=== PATIENT | male | born 1955 | race Hispanic/Latino ===

== ENCOUNTER 2017-11-15 04:38 | Inpatient (IN) | payer OTHER ==
[2017-11-15 05:06] LABS: Basophils % (Auto) 0.6 % (0.0-1.8); Eosinophils # (Auto) 0.1 K/mm3 (0.0-0.4); Eosinophils % (Auto) 0.8 % (0.0-4.3); Hematocrit 43.8 % (35.5-45.6); Hemoglobin 14.7 gm/dl (11.8-15.2); Lymphocytes # (Auto) 1.1 K/mm3 (1.2-5.4); Lymphocytes % (Auto) 17.6 % (13.4-35.0); Mean Corpuscular HGB Conc 34 % (32-34); Mean Corpuscular Hemoglobin 33 pg (28-32); Mean Corpuscular Volume 97 fl (84-94); Monocytes # (Auto) 0.7 K/mm3 (0.0-0.8); Platelet Count 181 K/mm3 (140-440); Red Blood Count 4.53 M/mm3 (3.65-5.03); Red Cell Distribution Width 13.6 % (13.2-15.2)
[2017-11-15 05:15] LABS: BUN/Creatinine Ratio 10; Blood Urea Nitrogen 7 mg/dL (9-20); Calcium 9.3 mg/dL (8.4-10.2); Hemolysis Index 6
[2017-11-15] MEDS ORDERED: NACL 0.9% 1000 ML 1,000 ML IV ONE (07:00)
[2017-11-15] MEDS ORDERED: ZOFRAN IV ONE (07:08)
--- NOTE | 2017-11-15 07:08 | Emergency Department Report ---
HPI - General Chief Complaint: Nausea/Vomiting/Diarrhea Time Seen by Provider: 11/15/17 06:40 - HPI HPI: 62-year-old male presents to the emergency department with a one-day history of dizziness, nausea and vomiting and tremors/shakes. The patient says he feels dehydrated. He says that he spent , drinking heavily and did not eat much food. Patient also says that he feels slightly off balance. He denies any history of alcoholism and is not a daily drinker. He denies any illicit drug use. He has a past medical history of gout, hypertension and questionable thyroid disease. His primary care physician is a Dr. Melgar. No recent travel or sick contacts at home. He denies any vision change, chest pain, fever, slurred speech. ED Past Medical Hx - Past Medical History Hx Hypertension: Yes Hx Congestive Heart Failure: No Hx Diabetes: No Hx Asthma: No Hx COPD: No Hx HIV: No Additional medical history: GOUT, Thyroid Disease. - Surgical History Additional Surgical History: Multiple Surgeries on hands - Social History Smoking Status: Never Smoker Substance Use Type: Alcohol - Medications Home Medications: Home Medications Medication Instructions Recorded Confirmed Last Taken Type Folic Acid 1 tab PO QDAY #30 tab 05/05/15 11/15/17 Unknown Rx Multivitamin Tab [Multiple Vitamin 1 each PO QDAY #30 tablet 05/05/15 11/15/17 Unknown Rx TAB (Theragran)] Thiamine [Vitamin B-1] 100 mg PO QDAY #30 tablet 05/05/15 11/15/17 Unknown Rx Allopurinol 300 mg PO QDAY 11/15/17 11/15/17 Unknown History Levothyroxine [Synthroid] 50 mcg PO QAM 11/15/17 11/15/17 Unknown History Lisinopril 20 mg PO QDAY 11/15/17 11/15/17 Unknown History ED Review of Systems ROS: Stated complaint: SHAKES,DEHYDRATION Other details as noted in HPI Comment: All other systems reviewed and negative Constitutional: denies: chills, fever Eyes: denies: eye pain, eye discharge, vision change ENT: denies: ear pain, throat pain Respiratory: denies: cough, shortness of breath, wheezing Cardiovascular: denies: chest pain, palpitations Gastrointestinal: nausea, vomiting Genitourinary: denies: urgency, dysuria Musculoskeletal: denies: back pain, joint swelling, arthralgia Skin: denies: rash, lesions Neurological: other (dizziness). denies: headache Physical Exam - Physical Exam Vital Signs: Vital Signs 11/15/17 11/15/17 11/15/17 04:44 05:07 05:16 Temperature 97.7 F Pulse Rate 78 Respiratory 18 Rate Blood Pressure 177/94 174/90 Blood Pressure [Left] O2 Sat by Pulse 100 96 98 Oximetry 11/15/17 11/15/17 11/15/17 05:20 05:22 05:30 Temperature 97.7 F Pulse Rate 70 Respiratory 16 16 Rate Blood Pressure 156/79 Blood Pressure 174/90 [Left] O2 Sat by Pulse 96 96 97 Oximetry 11/15/17 11/15/17 11/15/17 05:46 06:00 06:16 Temperature Pulse Rate Respiratory Rate Blood Pressure 156/79 165/82 165/82 Blood Pressure [Left] O2 Sat by Pulse 97 97 97 Oximetry 11/15/17 11/15/17 06:30 06:46 Temperature Pulse Rate Respiratory Rate Blood Pressure 155/82 155/82 Blood Pressure [Left] O2 Sat by Pulse 99 98 Oximetry Physical Exam: GENERAL: The patient is well-developed well-nourished. HENT: Normocephalic. Atraumatic. Patient has moist mucous membranes. EYES: Extraocular motions are intact. Pupils equal reactive to light bilaterally. No nystagmus. NECK: Supple. Trachea is midline. CHEST/LUNGS: Clear to auscultation. There is no respiratory distress noted. HEART/CARDIOVASCULAR: Regular. There is no tachycardia. There is no murmur. ABDOMEN: Abdomen is soft, nontender. Patient has normal bowel sounds. There is no abdominal distention. SKIN: Skin is warm and dry. NEURO: The patient is awake, alert, and oriented. The patient is cooperative. The patient has no focal neurologic deficits. The patient has normal speech. Cranial nerves II through XII grossly intact. No pronator drift. No dysmetria. Patient does have bilateral upper extremity tremors worse in the distal portions. MUSCULOSKELETAL: There is no tenderness or deformity. There is no evidence of acute injury. ED Course Vital Signs 11/15/17 11/15/17 11/15/17 04:44 05:07 05:16 Temperature 97.7 F Pulse Rate 78 Respiratory 18 Rate Blood Pressure 177/94 174/90 Blood Pressure [Left] O2 Sat by Pulse 100 96 98 Oximetry 11/15/17 11/15/17 11/15/17 05:20 05:22 05:30 Temperature 97.7 F Pulse Rate 70 Respiratory 16 16 Rate Blood Pressure 156/79 Blood Pressure 174/90 [Left] O2 Sat by Pulse 96 96 97 Oximetry 11/15/17 11/15/17 11/15/17 05:46 06:00 06:16 Temperature Pulse Rate Respiratory Rate Blood Pressure 156/79 165/82 165/82 Blood Pressure [Left] O2 Sat by Pulse 97 97 97 Oximetry 11/15/17 11/15/17 06:30 06:46 Temperature Pulse Rate Respiratory Rate Blood Pressure 155/82 155/82 Blood Pressure [Left] O2 Sat by Pulse 99 98 Oximetry ED Medical Decision Making - Lab Data Result diagrams: 11/15/17 04:55 11/15/17 04:55 - EKG Data -: EKG Interpreted by Oh EKG shows normal: sinus rhythm, axis (left axis deviation), intervals, QRS complexes (LAFB), ST-T waves Rate: normal - EKG Data When compared to previous EKG there are: previous EKG unavailable Interpretation: other (sinus, left axis deviation, LAFB) - Radiology Data Radiology results: report reviewed CT of the head does not show any acute intracranial process including no ischemia, shift, mass, bleeding or skull fracture. - Medical Decision Making Patient presents with some generalized weakness and dizziness, nausea and vomiting and no onset tremors. The patient denies a history of alcoholism but does admit to recent alcohol abuse. He also says that he has not eaten much since having the drinking session 2 days ago. Found to have hyponatremia with a blood sugar of 125 as well as some slightly low magnesium. His symptoms could be related to electrolyte abnormalities but also could be some type of an alcohol withdrawal syndrome. CT head does not show any bleed, shift, mass or any acute process. EKG does not show any ST elevation SD or significant dysrhythmia. Vital signs stable throughout his course. The patient be admitted to the hospital for further evaluation and treatment and was accepted for admission by the hospitalist service. - Differential Diagnosis alcohol withdrawal, CVA, MS, electrolyte abnormalities Critical Care Time: No Critical care attestation.: If time is entered above; I have spent that time in minutes in the direct care of this critically ill patient, excluding procedure time. ED Disposition Clinical Impression: Hyponatremia, Hypomagnesemia, Dizziness Disposition: OP ADMIT IP TO THIS HOSP Is pt being admited?: Yes Condition: Stable Time of Disposition: 11:37
--- NOTE | 2017-11-15 07:26 | Cat Scan Report ---
FINAL REPORT EXAM: CT HEAD/BRAIN WO CON HISTORY: Dizziness TECHNIQUE: Routine axial imaging was obtained of the brain without IV contrast. FINDINGS: There is mild generalized atrophy. There is no evidence of acute stroke or hemorrhage. The ventricular system is appropriate in size and is symmetric. The basal cisterns appear normal. The visualized sinuses are clear. The mastoid air cells are well pneumatized IMPRESSION: Mild generalized atrophy. No evidence of acute stroke or hemorrhage.
[2017-11-15] MEDS ORDERED: MAGNESIUM SULFATE 1 GM in NACL 0.9% 50 ML IV ONE (08:00)
[2017-11-15] MEDS ORDERED: ATIVAN IV PRN (10:22)
[2017-11-15] MEDS ORDERED: HALDOL IV PRN (10:22)
[2017-11-15] MEDS ORDERED: APRESOLINE IV PRN (10:25)
[2017-11-15] MEDS ORDERED: ZOFRAN IV PRN (10:25)
[2017-11-15] MEDS ORDERED: TYLENOL PO PRN (10:25)
--- NOTE | 2017-11-15 10:29 | History and Physical Report ---
History of Present Illness Date of admission: 11/15/17 08:21 Chief complaint: N/V/D with tremors History of present illness: Patient is a 62-year-old man with a history of hypertension, gout, hypothyroidism and alcohol abuse who presents to [facility] ED via private vehicle ( drove him yesterday) with intractable severe constant nausea vomiting and small amount of diarrhea which is resolved. He had dry heaves and murmurs reported today. He is thirsty and dehydrated. Patient consumed copious amounts of alcohol on day, Wednesday, November 13. His last alcoholic drink was around 7 PM on Wednesday evening. Then he developed intractable nausea and vomiting. He denies any abdominal pain currently or diarrhea. He denies any fever or chills or cough. There is no aggravating or relieving factors to nausea/vomiting. Patient is being admitted to the hospital for alcohol withdrawal symptoms, severely low sodium level 125 with dehydration. Past medical history: As HPI, also GERD, patient states he is compliant with his thyroid medication although TSH is 8.920 Past surgical history: Left ear surgery as a child, bilateral hand surgery, Rupesh angina surgery Social history: He denies ever smoking, he has all abuse he denies any liver drugs he's at bedside, full Code Family history: Denies hypertension, mother of bone cancer (possibly was mets), father of prostate cancer, maternal uncle Emiliano has diabetes mellitus ROS: Constitutional: denies: fever ENT: denies: throat or neck pain Respiratory: denies: cough, shortness of breath Cardiovascular: denies: chest pain Endocrine: denies unexplained weight loss or gain Gastrointestinal: denies: abdominal pain, +nausea Genitourinary: denies: dysuria Rectal: denies no incontinence, no bleeding, no itching, no discharge Musculoskeletal: denies swelling, myaglia, +muscle weakness Skin: denies: rash Neurological: +frontal mild headache Hematological/Lymphatic: denies: easy bleeding or easy bruising Allergic/Immunologic: no urticaria, no allergic rhinitis, no anaphylaxis Psych: denies sadness or hopelessness, SI/HI Medications and Allergies Allergies Allergy/AdvReac Type Severity Reaction Status Date / Time penicillin Allergy Swelling Verified 05/04/15 12:33 Home Medications Medication Instructions Recorded Confirmed Last Taken Type Folic Acid 1 tab PO QDAY #30 tab 05/05/15 11/15/17 Unknown Rx Multivitamin Tab [Multiple Vitamin 1 each PO QDAY #30 tablet 05/05/15 11/15/17 Unknown Rx TAB (Theragran)] Thiamine [Vitamin B-1] 100 mg PO QDAY #30 tablet 05/05/15 11/15/17 Unknown Rx Allopurinol 300 mg PO QDAY 11/15/17 11/15/17 Unknown History Levothyroxine [Synthroid] 50 mcg PO QAM 11/15/17 11/15/17 Unknown History Lisinopril 20 mg PO QDAY 11/15/17 11/15/17 Unknown History Active Meds: Active Medications Acetaminophen (Tylenol) 325 mg PO Q6H PRN PRN Reason: Pain, Mild (1-3) Allopurinol (Zyloprim) 300 mg PO QDAY [facility] Chlordiazepoxide HCl (Librium) 50 mg PO Q1H PRN PRN Reason: CIWA-Ar 8-15 Enoxaparin Sodium (Lovenox) 40 mg SUB-Q QDAY [facility] Haloperidol Lactate (Haldol) 5 mg IV Q1H PRN PRN Reason: Unrespon. to mult. doses BZD's Hydralazine HCl (Apresoline) 10 mg IV Q4HR PRN PRN Reason: Blood Pressure Sodium Chloride (Nacl 0.9% 1000 Ml) 1,000 mls @ 100 mls/hr IV DIRECT [facility] Levothyroxine Sodium (Synthroid) 100 mcg PO DAILY@0600 [facility] Lisinopril (Zestril) 20 mg PO QDAY [facility] Lorazepam (Ativan) 2 mg IV Q1H PRN PRN Reason: CIWA-Ar 16-25 Miscellaneous Medication (Folic Acid [Folic Acid]) 1 tab PO QDAY [facility] Multivitamins (Theragran Tab) 1 each PO QDAY [facility] Ondansetron HCl (Zofran) 4 mg IV Q4H PRN PRN Reason: Nausea And Vomiting Pantoprazole Sodium (Protonix) 40 mg PO QDAY [facility] Thiamine HCl (Vitamin B-1) 100 mg PO QDAY [facility] Exam - Physical Exam Narrative exam: GEN: WDWN, NAD, AWAKE, ALERT, ORIENTATED 3 HEENT: NCAT, EOMI, PERRL, OP dry, tongue fasculations, nystagmus NECK: supple, no adenopathy, no thyromegaly, no JVD CVS/HEART: RRR, NORMAL S1S2, pulses present bilaterally CHEST/LUNGS: CTA B, Symmetrical chest expansion, good air entry bilaterally GI/Abdomen: soft, NTND, good bowel sounds, no guarding or rebound /Bladder: no suprapubic tenderness, no CVA or paraspinal tenderness EXT/Skin: no c/c/e, no obvious rash, deformed hands s/p multiple surgeries, mm dry, MSK: FROM x 4, Neuro: CN 2-12 grossly intact, fine intention tremor, Psych: anxious - Constitutional Vitals: Temp Pulse Resp BP Pulse Ox 98.1 F 65 16 137/68 97 11/15/17 09:48 11/15/17 09:48 11/15/17 09:48 11/15/17 09:48 11/15/17 09:48 Results - Labs CBC & Chem 7: 11/15/17 04:55 11/15/17 04:55 Labs: Abnormal lab results 11/15/17 11/15/17 11/15/17 Range/Units 04:55 04:55 04:55 MCV 97 H (84-94) fl MCH 33 H (28-32) pg [place] % (Auto) 12.0 H (0.0-7.3) % Lymph # 1.1 L (1.2-5.4) K/mm3 Sodium 125 L (137-145) mmol/L Chloride 87.1 L (98-107) mmol/L BUN 7 L (9-20) mg/dL Creatinine 0.7 L (0.8-1.5) mg/dL Glucose 115 H (75-100) mg/dL POC Glucose (70-105) Magnesium 1.60 L (1.7-2.3) mg/dL TSH (0.270-4.200) mlU/mL 11/15/17 11/15/17 Range/Units 04:55 04:57 MCV (84-94) fl MCH (28-32) pg [place] % (Auto) (0.0-7.3) % Lymph # (1.2-5.4) K/mm3 Sodium (137-145) mmol/L Chloride (98-107) mmol/L BUN (9-20) mg/dL Creatinine (0.8-1.5) mg/dL Glucose (75-100) mg/dL POC Glucose 107 H (70-105) Magnesium (1.7-2.3) mg/dL TSH 8.920 H (0.270-4.200) mlU/mL Assessment and Plan Patient is a 62-year-old man with a history of hypertension, gout, hypothyroidism and alcohol abuse who presents to [facility] ED via private vehicle ( drove him yesterday) with intractable severe constant nausea vomiting and small amount of diarrhea which is resolved. He had dry heaves and murmurs reported today. He is thirsty and dehydrated. Patient consumed copious amounts of alcohol on 's day, Wednesday, November 13. His last alcoholic drink was around 7 PM on Wednesday evening. Then he developed intractable nausea and vomiting. He denies any abdominal pain currently or diarrhea. He denies any fever or chills or cough. There is no aggravating or relieving factors to nausea/vomiting. Patient is being admitted to the hospital for alcohol withdrawal symptoms and severely low sodium level [address] head reported as generalized atrophy with no acute findings. -Intractable n/v due to Etoh: treat with iv zofran -Alcohol withdrawal syndrome: Treat with CIWA, thiamine and folate -Severe hyponatremia hypoosmolar: Treat with IV fluids/nss, complex medical decision because he has uncontrolled hypertension but he needs saline -Hypertension urgency: Treat with IV hydralazine when necessary, continue his home lisinopril -Hypomagnesemia: Replace and recheck a.m. -Hypothyroidism: Increase his Synthroid dose to 100 g in the morning time, T4 pending -Alcohol abuse: Counseled and education done, follow-up liver function a.m. and ammonia level -DVT prophylaxis: Subcutaneous Lovenox -GI prophylaxis: Protonix
[2017-11-15] MEDS ORDERED: NON-FORMULARY (Folic Acid [Folic Acid] 1 TAB) PO SCH (10:30)
[2017-11-15] MEDS: NACL 0.9% 1000 ML 1,000 ML IV SCH ×2 (11:22→20:20)
--- NOTE | 2017-11-15 16:12 | Consultation ---
History of Present Illness Consult date: 11/15/17 Requesting physician: AMINTA BACH Consult reason: other (nsvt) History of present illness: The pt is a 62 YO male with a past medical history significant for HTN, RA, gout , hypothyroidism and ETOH use. He is previously unknown to our practice. He presented with c/o intractable nausea and vomiting for several hours prior to arrival. Pt reports that he consumed copious amounts of alcohol on day, Wednesday, November 13. His last alcoholic drink was around 7 PM on Wednesday evening. Then he developed intractable nausea and vomiting. Serum Na 125; K+ 4.0; Mg 1.6; Following admission, he was noted to have frequent bouts of NSVT and PVCs and thus cardiology has been consulted. Pt denies any chest pain, palpitations, n/v, diaphoresis, dizziness or syncope. He reports that he underwent stress test greater than 10 years ago and believes the result of this study was normal. Past History Past Medical History: hypertension, hypothyroidism, other (RA; gout) Social history: , lives with family, alcohol abuse. denies: smoking, prescription drug abuse Medications and Allergies Allergies Allergy/AdvReac Type Severity Reaction Status Date / Time penicillin Allergy Swelling Verified 05/04/15 12:33 Home Medications Medication Instructions Recorded Confirmed Last Taken Type Folic Acid 1 tab PO QDAY #30 tab 05/05/15 11/15/17 Unknown Rx Multivitamin Tab [Multiple Vitamin 1 each PO QDAY #30 tablet 05/05/15 11/15/17 Unknown Rx TAB (Theragran)] Thiamine [Vitamin B-1] 100 mg PO QDAY #30 tablet 05/05/15 11/15/17 Unknown Rx Allopurinol 300 mg PO QDAY 11/15/17 11/15/17 Unknown History Levothyroxine [Synthroid] 50 mcg PO QAM 11/15/17 11/15/17 Unknown History Lisinopril 20 mg PO QDAY 11/15/17 11/15/17 Unknown History Active Meds: Active Medications Acetaminophen (Tylenol) 325 mg PO Q6H PRN PRN Reason: Pain, Mild (1-3) Allopurinol (Zyloprim) 300 mg PO QDAY [facility] Chlordiazepoxide HCl (Librium) 50 mg PO Q1H PRN PRN Reason: CIWA-Ar 8-15 Enoxaparin Sodium (Lovenox) 40 mg SUB-Q QDAY [facility] Folic Acid (Folvite) 1 mg PO DAILY [facility] Haloperidol Lactate (Haldol) 5 mg IV Q1H PRN PRN Reason: Unrespon. to mult. doses BZD's Hydralazine HCl (Apresoline) 10 mg IV Q4HR PRN PRN Reason: Blood Pressure Sodium Chloride (Nacl 0.9% 1000 Ml) 1,000 mls @ 100 mls/hr IV DIRECT [facility] Last Admin: 11/15/17 11:22 Dose: 100 mls/hr Levothyroxine Sodium (Synthroid) 100 mcg PO DAILY@0600 [facility] Lisinopril (Zestril) 20 mg PO QDAY [facility] Lorazepam (Ativan) 2 mg IV Q1H PRN PRN [facility] Mult[facility]itamins (Theragran Tab) 1 each PO QDAY [facility] Ondansetron HCl (Zofran) 4 mg IV Q4H PRN PRN Reason: Nausea And Vomiting Pantoprazole Sodium (Protonix) 40 mg PO QDAY [facility] Thiamine HCl (Vitamin B-1) 100 mg PO QDAY [facility] Review of Systems Constitutional: no weight loss, no weight gain, no fever, no chills, no sweats Ears, nose, mouth and throat: no ear pain, no nose pain, no sinus pressure, no sinus pain Cardiovascular: high blood pressure, no chest pain, no orthopnea, no palpitations, no rapid/irregular heart beat, no edema, no syncope, no lightheadedness, no shortness of breath, no dyspnea on exertion Respiratory: no cough, no shortness of breath, no dyspnea on exertion, no congestion, no wheezing, no pain on inspiration Gastrointestinal: nausea, vomiting, no abdominal pain, no diarrhea, no constipation, no change in bowel habits Genitourinary Male: no dysuria, no hematuria, no flank pain, no discharge, no urinary frequency, no urinary hesitancy Musculoskeletal: no neck stiffness, no neck pain Integumentary: no rash, no pruritis, no redness, no sores, no wounds Neurological: no head injury, no paralysis, no weakness, no parathesias, no numbness, no tingling, no seizures, no syncope Psychiatric: no anxiety Endocrine: no cold intolerance, no heat intolerance Hematologic/Lymphatic: no easy bruising, no easy bleeding, no lymphadenopathy Allergic/Immunologic: no urticaria, no wheezing, no persistent infections Physical Examination Vital Signs Temp Pulse Resp BP Pulse Ox 97.7 F 78 18 177/94 100 11/15/17 04:44 11/15/17 04:44 11/15/17 04:44 11/15/17 04:44 11/15/17 04:44 General appearance: no acute distress HEENT: Positive: PERRL, Normocephaly, Mucus Membranes Moist Neck: Positive: neck supple, trachea midline Cardiac: Positive: Reg Rate and Rhythm, S1/S2 Lungs: Positive: clear to auscultation Neuro: Positive: Grossly Intact, Cranial Nerve 2-12 Intact Abdomen: Positive: Soft. Negative: Tender Skin: Positive: Clear. Negative: Rash, Wound Musculoskeletal: No Fluid Collection, No Pain, Normal Range of Motion Extremities: Absent: edema Results 11/15/17 04:55 11/15/17 04:55 CBC 11/15/17 Range/Units 04:55 WBC 6.1 (4.5-11.0) K/mm3 RBC 4.53 (3.65-5.03) M/mm3 Hgb 14.7 (11.8-15.2) gm/dl Hct 43.8 (35.5-45.6) % Plt Count 181 (140-440) K/mm3 Lymph # 1.1 L (1.2-5.4) K/mm3 [place] # 0.7 (0.0-0.8) K/mm3 Eos # 0.1 (0.0-0.4) K/mm3 Baso # 0.0 (0.0-0.1) K/mm3 Comprehensive Metabolic Panel 11/15/17 Range/Units 04:55 Sodium 125 L (137-145) mmol/L Potassium 4.0 (3.6-5.0) mmol/L Chloride 87.1 L (98-107) mmol/L Carbon Dioxide 22 (22-30) mmol/L BUN 7 L (9-20) mg/dL Creatinine 0.7 L (0.8-1.5) mg/dL Glucose 115 H (75-100) mg/dL Calcium 9.3 (8.4-10.2) mg/dL - Imaging and Cardiology Echo: pending EKG: report reviewed, image reviewed EKG interpretations - Telemetry EKG Rhythm: Sinus Rhythm - EKG Sinus rhythms and dysrhythmias: sinus rhythm Assessment and Plan Assessment: NSVT / frequent PVCs ETOH withdrawal Hyponatremia Hypomag HTN H/o hypothyroidism - elevated TSH Plan: Obtain echo. Replete electrolytes. Repeat BMP and Mg in AM. Cont telemetry. Assessment and plan reviewed with pt at bedside. The patient has been seen in conjunction with Dr. Zuñiga who agrees with the assessment and plan of care.
[2017-11-15] MEDS: VITAMIN B-1 PO SCH (18:30)
[2017-11-15] MEDS: FOLVITE PO SCH (18:30)
[2017-11-15] MEDS: ZESTRIL PO SCH (18:30)
[2017-11-15] MEDS: ZYLOPRIM PO SCH (18:30)
[2017-11-15] MEDS: SYNTHROID PO SCH (18:30)
[2017-11-15] MEDS: THERAGRAN Tab PO SCH (18:30)
[2017-11-15] MEDS: PROTONIX PO SCH (18:31)
[2017-11-15] MEDS: LIBRIUM PO PRN (22:25)
[2017-11-16 05:30] LABS: Hematocrit 39.4 % (35.5-45.6); Hemoglobin 13.5 gm/dl (11.8-15.2); Mean Corpuscular HGB Conc 34 % (32-34); Mean Corpuscular Hemoglobin 33 pg (28-32); Mean Corpuscular Volume 97 fl (84-94); Platelet Count 143 K/mm3 (140-440); Red Blood Count 4.08 M/mm3 (3.65-5.03); Red Cell Distribution Width 13.4 % (13.2-15.2)
[2017-11-16] MEDS: NACL 0.9% 1000 ML 1,000 ML IV SCH ×2 (05:50→19:31)
[2017-11-16] MEDS: SYNTHROID PO SCH (05:50)
[2017-11-16 05:55] LABS: Alanine Aminotransferase 40 units/L (7-56); Albumin 4.1 g/dL (3.9-5); BUN/Creatinine Ratio 9; Bilirubin,Direct 0.3 mg/dL (0-0.2); Blood Urea Nitrogen 6 mg/dL (9-20); Calcium 8.9 mg/dL (8.4-10.2); Hemolysis Index 7
[2017-11-16] MEDS ORDERED: MAGNESIUM SULFATE IV ONE (07:55)
[2017-11-16] MEDS: ZESTRIL PO SCH (09:57)
[2017-11-16] MEDS: FOLVITE PO SCH (09:57)
[2017-11-16] MEDS: ZYLOPRIM PO SCH (09:58)
[2017-11-16] MEDS: LOVENOX SUB-Q SCH (09:58)
[2017-11-16] MEDS: THERAGRAN Tab PO SCH (09:58)
[2017-11-16] MEDS: VITAMIN B-1 PO SCH (09:58)
[2017-11-16] MEDS: PROTONIX PO SCH (09:58)
[2017-11-16] MEDS ORDERED: SYNTHROID PO SCH (10:00)
[2017-11-16] MEDS ORDERED: MAGNESIUM SULFATE 1 GM in NACL 0.9% 50 ML IV ONE ×2 (10:00→14:00)
--- NOTE | 2017-11-16 11:27 | Progress Note ---
Assessment and Plan Assessment: NSVT / frequent PVCs ETOH withdrawal Hyponatremia Hypomag HTN H/o hypothyroidism - elevated TSH Plan: Await echo. Replete electrolytes. Repeat BMP and Mg in AM. Cont telemetry. Assessment and plan reviewed with pt and pt's at bedside. The patient has been seen in conjunction with Dr. Zuñiga who agrees with the assessment and plan of care. Subjective Date of service: 11/16/17 Principal diagnosis: NSVT; ETOH withdrawal Interval history: no current complaints. for echo today. reports that resting tremor is improving. at bedside. Objective Last Vital Signs Temp 98.5 F 11/16/17 07:48 Pulse 59 L 11/16/17 07:48 Resp 20 11/16/17 07:48 BP 156/68 11/16/17 07:48 Pulse Ox 96 11/16/17 07:48 - Physical Examination General: No Apparent Distress HEENT: Positive: PERRL, Normocephaly, Mucus Membranes Moist Neck: Positive: neck supple, trachea midline Cardiac: Positive: Reg Rate and Rhythm, S1/S2 Lungs: Positive: clear to auscultation Neuro: Positive: Grossly Intact, Cranial Nerve 2-12 Intact Abdomen: Positive: Soft. Negative: Tender Skin: Positive: Clear. Negative: Rash, Wound Musculoskeletal: No Fluid Collection, No Pain, Normal Range of Motion Extremities: Absent: edema - Labs and Meds Cardiac Enzymes 11/16/17 Range/Units 04:52 AST 57 H (5-40) units/L CBC 11/16/17 Range/Units 04:52 WBC 5.2 (4.5-11.0) K/mm3 RBC 4.08 (3.65-5.03) M/mm3 Hgb 13.5 (11.8-15.2) gm/dl Hct 39.4 (35.5-45.6) % Plt Count 143 (140-440) K/mm3 Comprehensive Metabolic Panel 11/16/17 Range/Units 04:52 Sodium 133 L D (137-145) mmol/L Potassium 4.2 (3.6-5.0) mmol/L Chloride 95.7 L (98-107) mmol/L Carbon Dioxide 21 L (22-30) mmol/L BUN 6 L (9-20) mg/dL Creatinine 0.7 L (0.8-1.5) mg/dL Glucose 88 (75-100) mg/dL Calcium 8.9 (8.4-10.2) mg/dL Direct Bilirubin 0.3 H (0-0.2) mg/dL Indirect Bilirubin 0.7 mg/dL AST 57 H (5-40) units/L ALT 40 (7-56) units/L Alkaline Phosphatase 43 (35-129) units/L Total Protein 6.5 (6.3-8.2) g/dL Albumin 4.1 (3.9-5) g/dL - Imaging and Cardiology EKG: report reviewed, image reviewed Echo: pending - EKG Sinus rhythms and dysrhythmias: sinus rhythm
--- NOTE | 2017-11-16 12:59 | Progress Note ---
<VALERIY SOLIS - Last Filed: 11/16/17 14:42> Assessment and Plan Assessment and plan: 62-year-old man with a history of hypertension, gout, hypothyroidism and alcohol abuse who presents to [facility] ED via private vehicle ( drove him yesterday) with intractable severe constant nausea vomiting and small amount of diarrhea which has resolved. He had dry heaves and murmurs reported on day of admission. Patient consumed copious amounts of alcohol on 's day, Wednesday, November 13. His last alcoholic drink was around 7 PM on Wednesday evening. Then he developed intractable nausea and vomiting. Brief HPI obtained from admitting physician Intractable n/v due to Etoh Resolved today, zofran PRN Alcohol withdrawal syndrome Continue CIWA protocol, thiamine and folate Severe hyponatremia hypoosmolar Improving, continue IV fluids/nss, complex medical decision because he has uncontrolled hypertension but he needs saline Hypertension urgency Now resolved Hypertension IV hydralazine when necessary, continue lisinopril Hypomagnesemia Replace and recheck a.m. Hypothyroidism Continue Synthroid, T4 WNL Alcohol abuse Counseled and education done DVT prophylaxis Subcutaneous Lovenox GI prophylaxis Protonix History Interval history: Patient seen and examined. He has no complaints at this time. He denies chest pain, shortness of breath, nausea and vomiting. Labs and nursing notes reviewed. Hospitalist Physical - Constitutional Vitals: Temp Pulse Resp BP Pulse Ox 97.4 F L 60 22 131/69 97 11/16/17 12:10 11/16/17 12:10 11/16/17 12:10 11/16/17 12:10 11/16/17 12:10 General appearance: Present: no acute distress, well-nourished - EENT Eyes: Present: PERRL, EOM intact ENT: hearing intact, clear oral mucosa - Neck Neck: Present: supple, normal ROM - Respiratory Respiratory effort: normal Respiratory: bilateral: CTA - Cardiovascular Rhythm: regular Heart Sounds: Present: S1 & S2 - Extremities Extremities: no ischemia, No edema - Abdominal General gastrointestinal: soft, non-tender, non-distended - Integumentary Integumentary: Present: clear, warm, dry - Psychiatric Psychiatric: appropriate mood/affect, intact judgment & insight, cooperative - Neurologic Neurologic: CNII-XII intact, moves all extremities - Allied Health Allied health notes reviewed: nursing Results - Labs CBC & Chem 7: 11/16/17 04:52 11/16/17 04:52 Labs: Laboratory Last Values WBC 5.2 K/mm3 (4.5-11.0) 11/16/17 04:52 RBC 4.08 M/mm3 (3.65-5.03) 11/16/17 04:52 Hgb 13.5 gm/dl (11.8-15.2) 11/16/17 04:52 Hct 39.4 % (35.5-45.6) 11/16/17 04:52 MCV 97 fl (84-94) H 11/16/17 04:52 MCH 33 pg (28-32) H 11/16/17 04:52 MCHC 34 % (32-34) 11/16/17 04:52 RDW 13.4 % (13.2-15.2) 11/16/17 04:52 Plt Count 143 K/mm3 (140-440) 11/16/17 04:52 Lymph % (Auto) 17.6 % (13.4-35.0) 11/15/17 04:55 Mcminn % (Auto) 12.0 % (0.0-7.3) H 11/15/17 04:55 Eos % (Auto) 0.8 % (0.0-4.3) 11/15/17 04:55 Baso % (Auto) 0.6 % (0.0-1.8) 11/15/17 04:55 Lymph # 1.1 K/mm3 (1.2-5.4) L 11/15/17 04:55 Mcminn # 0.7 K/mm3 (0.0-0.8) 11/15/17 04:55 Eos # 0.1 K/mm3 (0.0-0.4) 11/15/17 04:55 Baso # 0.0 K/mm3 (0.0-0.1) 11/15/17 04:55 Seg Neutrophils % 69.0 % (40.0-70.0) 11/15/17 04:55 Seg Neutrophils # 4.2 K/mm3 (1.8-7.7) 11/15/17 04:55 Sodium 133 mmol/L (137-145) L D 11/16/17 04:52 Potassium 4.2 mmol/L (3.6-5.0) 11/16/17 04:52 Chloride 95.7 mmol/L (98-107) L 11/16/17 04:52 Carbon Dioxide 21 mmol/L (22-30) L 11/16/17 04:52 Anion Gap 21 mmol/L 11/16/17 04:52 BUN 6 mg/dL (9-20) L 11/16/17 04:52 Creatinine 0.7 mg/dL (0.8-1.5) L 11/16/17 04:52 Estimated GFR > 60 ml/min 11/16/17 04:52 BUN/Creatinine Ratio 9 % 11/16/17 04:52 Glucose 88 mg/dL (75-100) 11/16/17 04:52 POC Glucose 107 (70-105) H 11/15/17 04:57 Calcium 8.9 mg/dL (8.4-10.2) 11/16/17 04:52 Magnesium 1.60 mg/dL (1.7-2.3) L 11/16/17 04:52 Total Bilirubin 1.00 mg/dL (0.1-1.2) 11/16/17 04:52 Direct Bilirubin 0.3 mg/dL (0-0.2) H 11/16/17 04:52 Indirect Bilirubin 0.7 mg/dL 11/16/17 04:52 AST 57 units/L (5-40) H 11/16/17 04:52 ALT 40 units/L (7-56) 11/16/17 04:52 Alkaline Phosphatase 43 units/L (35-129) 11/16/17 04:52 Ammonia 61.0 umol/L (25-60) H 11/16/17 04:52 Troponin T < 0.010 ng/mL (0.00-0.029) 11/15/17 04:55 Total Protein 6.5 g/dL (6.3-8.2) 11/16/17 04:52 Albumin 4.1 g/dL (3.9-5) 11/16/17 04:52 Albumin/Globulin Ratio 1.7 % 11/16/17 04:52 TSH 8.920 mlU/mL (0.270-4.200) H 11/15/17 04:55 Thyroxine (T4) 5.3 ug/dL (4.0-12.0) 11/15/17 04:55 Plasma/Serum Alcohol < 0.01 % (0-0.07) 11/15/17 04:55 <RYNE PERALES - Last Filed: 11/17/17 00:43> Assessment and Plan Assessment and plan: I saw and evaluated the patient on the day of service. I agree with the findings and the plan of care as documented in the Nurse Practitioner's~note. Hospitalist Physical - Constitutional Vitals: Temp Pulse Resp BP Pulse Ox 97.4 F L 59 L 20 153/60 97 11/16/17 23:28 11/16/17 23:28 11/16/17 23:28 11/16/17 23:28 11/16/17 23:28 Results - Labs CBC & Chem 7: 11/16/17 04:52 11/16/17 04:52 Labs: Laboratory Last Values WBC 5.2 K/mm3 (4.5-11.0) 11/16/17 04:52 RBC 4.08 M/mm3 (3.65-5.03) 11/16/17 04:52 Hgb 13.5 gm/dl (11.8-15.2) 11/16/17 04:52 Hct 39.4 % (35.5-45.6) 11/16/17 04:52 MCV 97 fl (84-94) H 11/16/17 04:52 MCH 33 pg (28-32) H 11/16/17 04:52 MCHC 34 % (32-34) 11/16/17 04:52 RDW 13.4 % (13.2-15.2) 11/16/17 04:52 Plt Count 143 K/mm3 (140-440) 11/16/17 04:52 Lymph % (Auto) 17.6 % (13.4-35.0) 11/15/17 04:55 Mcminn % (Auto) 12.0 % (0.0-7.3) H 11/15/17 04:55 Eos % (Auto) 0.8 % (0.0-4.3) 11/15/17 04:55 Baso % (Auto) 0.6 % (0.0-1.8) 11/15/17 04:55 Lymph # 1.1 K/mm3 (1.2-5.4) L 11/15/17 04:55 Mcminn # 0.7 K/mm3 (0.0-0.8) 11/15/17 04:55 Eos # 0.1 K/mm3 (0.0-0.4) 11/15/17 04:55 Baso # 0.0 K/mm3 (0.0-0.1) 11/15/17 04:55 Seg Neutrophils % 69.0 % (40.0-70.0) 11/15/17 04:55 Seg Neutrophils # 4.2 K/mm3 (1.8-7.7) 11/15/17 04:55 Sodium 133 mmol/L (137-145) L D 11/16/17 04:52 Potassium 4.2 mmol/L (3.6-5.0) 11/16/17 04:52 Chloride 95.7 mmol/L (98-107) L 11/16/17 04:52 Carbon Dioxide 21 mmol/L (22-30) L 11/16/17 04:52 Anion Gap 21 mmol/L 11/16/17 04:52 BUN 6 mg/dL (9-20) L 11/16/17 04:52 Creatinine 0.7 mg/dL (0.8-1.5) L 11/16/17 04:52 Estimated GFR > 60 ml/min 11/16/17 04:52 BUN/Creatinine Ratio 9 % 11/16/17 04:52 Glucose 88 mg/dL (75-100) 11/16/17 04:52 POC Glucose 107 (70-105) H 11/15/17 04:57 Calcium 8.9 mg/dL (8.4-10.2) 11/16/17 04:52 Magnesium 1.60 mg/dL (1.7-2.3) L 11/16/17 04:52 Total Bilirubin 1.00 mg/dL (0.1-1.2) 11/16/17 04:52 Direct Bilirubin 0.3 mg/dL (0-0.2) H 11/16/17 04:52 Indirect Bilirubin 0.7 mg/dL 11/16/17 04:52 AST 57 units/L (5-40) H 11/16/17 04:52 ALT 40 units/L (7-56) 11/16/17 04:52 Alkaline Phosphatase 43 units/L (35-129) 11/16/17 04:52 Ammonia 61.0 umol/L (25-60) H 11/16/17 04:52 Troponin T < 0.010 ng/mL (0.00-0.029) 11/15/17 04:55 Total Protein 6.5 g/dL (6.3-8.2) 11/16/17 04:52 Albumin 4.1 g/dL (3.9-5) 11/16/17 04:52 Albumin/Globulin Ratio 1.7 % 11/16/17 04:52 TSH 8.920 mlU/mL (0.270-4.200) H 11/15/17 04:55 Thyroxine (T4) 5.3 ug/dL (4.0-12.0) 11/15/17 04:55 Plasma/Serum Alcohol < 0.01 % (0-0.07) 11/15/17 04:55
[2017-11-16] MEDS: LIBRIUM PO PRN (22:05)
[2017-11-17 05:31] LABS: Hematocrit 36.5 % (35.5-45.6); Hemoglobin 12.7 gm/dl (11.8-15.2); Mean Corpuscular HGB Conc 35 % (32-34); Mean Corpuscular Hemoglobin 34 pg (28-32); Mean Corpuscular Volume 97 fl (84-94); Platelet Count 129 K/mm3 (140-440); Red Blood Count 3.78 M/mm3 (3.65-5.03); Red Cell Distribution Width 13.6 % (13.2-15.2)
[2017-11-17] MEDS: NACL 0.9% 1000 ML 1,000 ML IV SCH (05:36)
[2017-11-17] MEDS: SYNTHROID PO SCH (05:36)
[2017-11-17 05:51] LABS: BUN/Creatinine Ratio 11; Blood Urea Nitrogen 8 mg/dL (9-20); Calcium 8.4 mg/dL (8.4-10.2); Hemolysis Index 9
[2017-11-17 08:55] VITALS: BP 140/67
--- NOTE | 2017-11-17 09:58 | Progress Note ---
Assessment and Plan Assessment: NSVT / frequent PVCs - improving ETOH withdrawal - improving Hyponatremia Hypomag HTN H/o hypothyroidism - elevated TSH ? AJAY - recommend OP sleep study Plan: Echo reviewed - EF 45-50%, mild LVH, impaired relaxation, mild TR, mild pulm HTN with RVSP 38mmHg. Electrolytes continue to normalize. Currently stable cardiac status. Pt may discharge home from cardiology standpoint. Pt has and is going to try to make f/u appt with [place] [facility]. If desired, recommend pt follow up in our office with Dr. Zuñiga within 2 weeks of hospital discharge ([phone]). Assessment and plan reviewed with pt and pt's at bedside. The patient has been seen in conjunction with Dr. Camacho who agrees with the assessment and plan of care. Subjective Date of service: 11/17/17 Principal diagnosis: NSVT; ETOH withdrawal Interval history: no current complaints. states he feels ready for discharge home. at bedside. tele reviewed - pt with less ventricular ectopy, isolated PVCs. Objective Last Vital Signs Temp 97.7 F 11/17/17 07:27 Pulse 58 L 11/17/17 07:27 Resp 20 11/17/17 07:27 BP 140/67 11/17/17 07:27 Pulse Ox 96 11/17/17 07:27 - Physical Examination General: No Apparent Distress HEENT: Positive: PERRL, Normocephaly, Mucus Membranes Moist Neck: Positive: neck supple, trachea midline Cardiac: Positive: Reg Rate and Rhythm, S1/S2 Lungs: Positive: clear to auscultation Neuro: Positive: Grossly Intact, Cranial Nerve 2-12 Intact Abdomen: Positive: Soft. Negative: Tender Skin: Positive: Clear. Negative: Rash, Wound Musculoskeletal: No Fluid Collection, No Pain, Normal Range of Motion Extremities: Absent: edema - Labs and Meds CBC 11/17/17 Range/Units 05:10 WBC 5.0 (4.5-11.0) K/mm3 RBC 3.78 (3.65-5.03) M/mm3 Hgb 12.7 (11.8-15.2) gm/dl Hct 36.5 (35.5-45.6) % Plt Count 129 L (140-440) K/mm3 Comprehensive Metabolic Panel 11/17/17 Range/Units 05:10 Sodium 132 L (137-145) mmol/L Potassium 3.8 (3.6-5.0) mmol/L Chloride 96.3 L (98-107) mmol/L Carbon Dioxide 21 L (22-30) mmol/L BUN 8 L (9-20) mg/dL Creatinine 0.7 L (0.8-1.5) mg/dL Glucose 85 (75-100) mg/dL Calcium 8.4 (8.4-10.2) mg/dL - Imaging and Cardiology EKG: report reviewed, image reviewed Echo: report reviewed (EF 45-50%, mild LVH, impaired relaxation, mild TR, mild pulm HTN with RVSP 38mmHg) - Telemetry EKG Rhythm: Sinus Rhythm - EKG Sinus rhythms and dysrhythmias: sinus rhythm
[2017-11-17] MEDS: ZESTRIL PO SCH (10:28)
[2017-11-17] MEDS: ZYLOPRIM PO SCH (10:28)
[2017-11-17] MEDS: VITAMIN B-1 PO SCH (10:28)
[2017-11-17] MEDS: THERAGRAN Tab PO SCH (10:29)
[2017-11-17] MEDS: FOLVITE PO SCH (10:29)
[2017-11-17] MEDS: LOVENOX SUB-Q SCH (10:29)
[2017-11-17] MEDS: PROTONIX PO SCH (10:29)
--- NOTE | 2017-11-17 11:16 | Discharge Summary ---
Providers - Providers Date of Admission: 11/15/17 08:21 Date of discharge: 11/17/17 Attending physician: RYNE PERALES 11/15/17 15:51 Consult to Physician [CONS] Routine Comment: Consulting Provider: MARGARITA PARK Physician Instructions: Reason For Exam: nsvt Primary care physician: LINDA CHRISTOPHER Hospitalization Condition: Stable Pertinent studies: Head CT showed Mild generalized atrophy. No evidence of acute stroke or hemorrhage. Echocardiogram revealed ejection fraction of 45-50% with abnormal left ventricular diastolic filling consistent with impaired relaxation. Global left ventricular systolic function is at the lower limits of normal Hospital course: 62-year-old man with a history of hypertension, gout, hypothyroidism and alcohol abuse who presents to [facility] ED via private vehicle ( drove him yesterday) with intractable severe constant nausea vomiting and small amount of diarrhea which has resolved. He had dry heaves and murmurs reported on day of admission. Patient consumed copious amounts of alcohol on 's day, Wednesday, November 13. His last alcoholic drink was around 7 PM on Wednesday evening. Then he developed intractable nausea and vomiting. Brief HPI obtained from admitting physician Patient was admitted to the hospital for alcohol withdrawal symptoms, severity low sodium level 125 with dehydration. For the nausea and vomiting, patient was treated with IV Zofran after which his symptoms began to improve. Patient was placed on CIWA protocol and treated with thiamine and folate for alcohol withdrawal. He received IV fluids for his severe hyponatremia after which he clinically began to improve. Patient was found to have hypertensive urgency and with treated with antihypertensives after which his blood pressure stabilized. Cardiology services were consulted as patient was noted to have frequent bouts of NSVT and PVCs. Echocardiogram was completed which showed EF 45-50%, mild LVH, impaired relaxation, mild TR, mild pulm HTN with RVSP 38mmHg. no further cardiac testing was indicated at this time and patient was stable for discharge back to his home with recommendations to follow-up with his PCP within 7 days of discharge and chemist enzymes within 2 weeks of discharge. Discharge diagnoses Intractable nausea and vomiting due to alcohol Alcohol withdrawal syndrome Severe hyponatremia hypoosmolar Hypertensive urgency Hypertension Hypomagnesemia Alcohol abuse DVT prophylaxis GI prophylaxis Disposition: TO HOME OR SELFCARE Time spent for discharge: 32 minutes Core Measure Documentation - Palliative Care Palliative Care/ Comfort Measures: Not Applicable - Core Measures Any of the following diagnoses?: none Exam - Constitutional Vitals: Temp Pulse Resp BP Pulse Ox 97.7 F 58 L 20 140/67 96 11/17/17 07:27 11/17/17 07:27 11/17/17 07:27 11/17/17 07:27 11/17/17 07:27 General appearance: Present: no acute distress, well-nourished - EENT Eyes: Present: PERRL ENT: hearing intact, clear oral mucosa - Neck Neck: Present: supple, normal ROM - Respiratory Respiratory effort: normal Respiratory: bilateral: CTA - Cardiovascular Heart Sounds: Present: S1 & S2. Absent: rub, click - Extremities Extremities: pulses symmetrical, No edema Peripheral Pulses: within normal limits - Abdominal General gastrointestinal: Present: soft, non-tender, non-distended, normal bowel sounds - Integumentary Integumentary: Present: clear, warm, dry - Musculoskeletal Musculoskeletal: gait normal, strength equal bilaterally - Psychiatric Psychiatric: appropriate mood/affect, intact judgment & insight - Neurologic Neurologic: CNII-XII intact, moves all extremities Plan Activity: advance as tolerated, fall precautions Diet: low fat, low cholesterol, low salt, advance as tolerated Additional Instructions: Follow up with [facility] within 2 weeks of discharge. You may choose to follow up with chemist enzymes Dr Zuñiga within 2 weeks [phone]. Recommendations are made for an outpatient sleep study to evaluate for sleep apnea. Follow up with: LINDA CHRISTOPHER MD [Primary Care Provider] - 3-5 Days
== END 2017-11-17 13:15 | disposition home or self-care (01) | DRG 895 ==
LOC: ED 04:38 → 3A 08:21
PROVIDERS: ADMIT Internal Medicine; ATTEND Internal Medicine
PROC: HZ34ZZZ Individual Counseling for Substance Abuse Treatment, Interpersonal (ICD-10-PCS; principal; 2017-11-15)
DX: F10.239 Alcohol dependence with withdrawal, unspecified (principal); I16.0 Hypertensive urgency; E87.1 Hypo-osmolality and hyponatremia; M10.9 Gout, unspecified; E83.42 Hypomagnesemia; I47.2 Ventricular tachycardia; E03.9 Hypothyroidism, unspecified; E86.0 Dehydration; I49.3 Ventricular premature depolarization; I27.20 Pulmonary hypertension, unspecified; I07.1 Rheumatic tricuspid insufficiency; K21.9 Gastro-esophageal reflux disease without esophagitis; Y90.9 Presence of alcohol in blood, level not specified; Z71.41 Alcohol abuse counseling and surveillance of alcoholic; Z80.8 Family history of malignant neoplasm of other organs or systems; Z79.899 Other long term (current) drug therapy; Z80.42 Family history of malignant neoplasm of prostate; Z88.0 Allergy status to penicillin
CPT/HCPCS: 36415; 70450; 80048; 80074; 80320; 82140; 82962; 83735; 84436; 84443; 84484; 85025; 85027; 93005; 93010; 93306; 96361; 96365; 96375; G0480; J1650; J2405; J3475; J7030